=== PATIENT | female | born 1975 | race Caucasian/White ===

== ENCOUNTER → 2025-01-06 | Outpatient (CLI) | payer MEDICAID, SELFPAY ==
--- NOTE | 2025-01-06 11:12 | XR_ITS ---
EXAMINATION: Cervical spine 3 views TECHNIQUE: AP lateral coned AP odontoid cervical spine 3 views Date and time: January 06, 2025, 11:54 a.m. INDICATIONS: Neck pain radiating down the left shoulder 5 years. FINDINGS: Minimal anterolisthesis C4 on C5 No cervical fracture Intact odontoid Minimal posterior osteophyte formation C4-C5, C5-C6 IMPRESSION: No cervical fracture Mild osteophyte formation posteriorly C4-C5, C5-C6
== END | disposition home or self-care (01) ==
PROVIDERS: Referring Provider Orthopaedic Surgery; Visit Provider Orthopaedic Surgery
DX: M25.78 Osteophyte, vertebrae (principal)
CPT/HCPCS: 72040